=== PATIENT | male | born 1970 ===

== ENCOUNTER → 2019-03-24 | Outpatient (CLI) | payer OTHER ==
--- NOTE | 2019-03-24 12:30 | PCVCIMAG ---
APPROVED REPORT Study performed: 03/24/2019 10:04:50 Exam: Stress Echocardiogram Indication: chest pain, Hypertension, hlp Patient Location: Echo lab Stress Nurse: Katlyn Hill RN Status: routine Ht: 6 ft 4 in HR: 68 bpm BP: 160/102 mmHg Rhythm: NSR Procedure The patient underwent an Exercise Stress Test using the Mele Protocol. Blood pressure, heart rate, and EKG were monitored. An Echocardiogram was performed by magnetic testing technician in four stages in quad fashion. At peak stress, four selected images were obtained and placed side by side with resting images for comparison. Stress Test Details Stress Test: Exercise stress testing was performed using a Mele protocol. HR Resting HR: 68 bpmMax Heart Rate (APMHR): 171 bpm Max HR Achieved: 151 bpmTarget HR (85% APMHR): 145 bpm % of APMHR: 88 Recovery HR: 83 bpm HR response to stress: Normal HR response to stress BP Resting BP: 160/102 mmHg Max BP: 220/92 mmHg Recovery BP: 140/82 mmHg BP response to stress: Normal blood pressure response to stress. ECG Resting ECG: Sinus Rhythm Stress ECG: Sinus Rhythm ST Change: Upsloping ST depression Maximum ST Deviation: 0.5 mm Arrhythmia: rare isolated PVCs Recovery ECG: Sinus Rhythm Recovery ST Change: Normal Recovery ST Deviation: 0 mm Recovery Arrhythmia: None Clinical Reason for Termination: Maximal effort Stress Symptoms: none Exercise duration: 13 min 45 sec Highest Stage Achieved: Stage 5: 5.0 mph at 18% grade. Exercise capacity: 17.2 METs Overall Exercise Capacity for Age: Excellent Scale: Active Angina Score: None Stress ECG Conclusion Mcmillan Treadmill Score is 10.5 which is Low risk. Pre-Stress Echo The resting Echocardiogram showed normal left ventricular contractility with an estimated Ejection Fraction of about >55%. Normal wall motion in all segments on baseline images. Post-Stress Echo The stress Echocardiogram showed normal left ventricular contractility with an estimated Ejection Fraction of about 65-70%. Normal augmentation of wall motion in all segments on post stress images. Clinical No clinical or ECG evidence for ischemia. Conclusion Clinical Response: Non-ischemic Exercise Capacity: Superior Stress ECG Response: Non-ischemic Stress Echo Images: Non-ischemic The left ventricle is normal in size and wall thickness in both the rest and stress images. Normal stress echocardiogram with maximal exercise stress. Hypertensive response to exercise. Lisinopril 20mg daily started; prescription given. Other Information Study Quality: Adequate <Conclusion> The left ventricle is normal in size and wall thickness in both the rest and stress images. Normal stress echocardiogram with maximal exercise stress. Hypertensive response to exercise. Lisinopril 20mg daily started; prescription given.
== END | disposition home or self-care (01) ==
LOC: PCVCIMAG 11:01
PROVIDERS: ATTEND Internal Medicine
DX: R07.9 Chest pain, unspecified (principal); I10 Essential (primary) hypertension; E78.5 Hyperlipidemia, unspecified
CPT/HCPCS: 93325; 93351